=== PATIENT | male | born 1950 | race Caucasian/White ===

== ENCOUNTER 2017-04-03 20:09 | Emergency (ER) | payer MEDICARE, BC ==
[2017-04-03 20:29] VITALS: BP 111/68
[2017-04-03] MEDS ORDERED: HYDROmorphone 1 MG/ML Syringe IVPUSH ONE (20:46)
[2017-04-03] MEDS ORDERED: Metoclopramide 10 MG/2 ML SDV IVPUSH ONE (20:46)
[2017-04-03] MEDS ORDERED: LORazepam 2 MG/ML MDV IVPUSH ONE (20:46)
--- NOTE | 2017-04-03 20:51 | EDM.PDOC ---
ED HPI GENERAL MEDICAL PROBLEM - General Chief Complaint: Back Pain or Injury Stated Complaint: detox Time Seen by Provider: 04/03/17 20:46 Source of Information: Reports: Patient History Limitations: Reports: No Limitations - History of Present Illness INITIAL COMMENTS - FREE TEXT/NARRATIVE: 67-year-old male presents to the ED in a moderately intoxicated state but in severe pain with sciatic in the right but talk and lower back rating all way down the leg. Patient denies any recent falls or injuries. Patient was sober for the last 2 years but over the last 3 weeks his gone back to heavy drinking primarily alcohol in the form of beer. He said 6. Today. He is trying to quit again and is feeling like he is going through some withdrawal symptoms. At present he is quite agitated and in a significant amount of pain. Denies any nausea vomiting or diarrhea. Bowel function is normal in his been eating satisfactorily. Denies any hematemesis or blood in the stool. Has had seizures in the past on alcohol withdrawal. Has been to treatment in [facility] and [place] in the past for alcohol withdrawal treatment.patient has had lumbar spine surgery 2 with fusion. Pain is never been completely relieved but for some reason it has become acutely exacerbated over the last 3-4 days.feeling confused and somewhat disoriented at times. Did take a methocarbamol tablet a few hours ago. Onset: Today Onset Date: 04/03/17 Duration: Day(s):, Getting Worse (sciatica pain right leg and but talk rating down the leg to the lateral foot.) Location: Reports: Lower Extremity, Right (in the distribution of L5 nerve root. ) Quality: Reports: Ache, Burning, Throbbing Severity: Severe Improves with: Reports: None Worsens with: Reports: Other. Denies: Rest Context: Denies: Activity, Exercise, Sick Contact, Trauma, Other Associated Symptoms: Reports: Other (alcohol intoxication with nausea no vomiting. 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 100 mg PO DAILY 10/31/14 [History] Tiotropium [Spiriva HandiHaler] 1 puff INH DAILY 10/31/14 [History] traZODone 100 mg PO BEDTIME 10/31/14 [History] Acetaminophen [Tylenol] 650 mg PO Q6H PRN #0 tablet 11/02/14 [Rx] Temazepam [Restoril] 15 mg PO BEDTIME PRN #30 cap 11/02/14 [Rx] cloNIDine [Catapres] 0.1 mg PO Q4H PRN #60 tablet 11/02/14 [Rx] Diazepam [Valium] 5 mg PO Q12H #12 tablet 04/03/17 [Rx] oxyCODONE HCl/Acetaminophen [Percocet 5-325 mg Tablet] 1 - 2 each PO Q4H PRN # 28 tablet 04/03/17 [Rx] predniSONE [Deltasone] 20 mg PO ASDIRECTED #18 tablet 04/03/17 [Rx] Past Medical History Respiratory History: Reports: Pneumonia, Recurrent Gastrointestinal History: Reports: Other (See Below) Other Gastrointestinal History: stomach surgery Psychiatric History: Reports: Anxiety, Depression Endocrine/Metabolic History: Reports: Diabetes, Type II Other Endocrine/Metabolic History: marginal - Past Surgical History Neurological Surgical History: Reports: Laminectomy, Lumbar Spine (2 with fusion second time. I believe this is at L4-L5.L-spine surgery) Social & Family History - Tobacco Use Smoking Status *Q: Current Every Day Smoker Years of Tobacco use: 53 Packs/Tins Daily: 2 - Caffeine Use Caffeine Use: Reports: Coffee - Alcohol Use Days Per Week of Alcohol Use: 7 Number of Drinks Per Day: 6 Total Drinks Per Week: 42 - Recreational Drug Use Recreational Drug Use: No Drug Use in Last 12 Months: No Recreational Drug Type: Reports: Other (see below) Recreational Drug Use Frequency: Not Used In Over 6 Months - Living Situation & Occupation Living situation: Reports: Occupation: Employed (self-employed.) ED ROS GENERAL - Review of Systems Review Of Systems: See Below Constitutional: Reports: Malaise, Fatigue (from not sleeping), Weight Loss. Denies: Fever, Chills, Weakness HEENT: Reports: No Symptoms Respiratory: Reports: Shortness of Breath, Wheezing (chronically due to heavy cigarette smoking), Cough, Sputum (smoker's cough.). Denies: Pleuritic Chest Pain, Hemoptysis (brownish in color mostly) Cardiovascular: Reports: Dyspnea on Exertion (chronically). Denies: Chest Pain Endocrine: Reports: Fatigue GI/Abdominal: Reports: Nausea. Denies: Abdominal Pain, Constipation, Diarrhea, Vomiting : Reports: Frequency Musculoskeletal: Reports: Back Pain (ion of L5 nerve root.) Skin: Reports: No Symptoms Neurological: Reports: Difficulty Walking (sciatica right buttock and leg.) Psychiatric: Reports: Agitation, Anxiety, Confusion, Mood Lability. Denies: Cravings, Depression, Hallucinations, Homicidal Ideation, Suicidal Ideation Hematologic/Lymphatic: Reports: No Symptoms Immunologic: Reports: No Symptoms ED EXAM,LOWER BACK PAIN/INJURY - Physical Exam Exam: See Below Exam Limited By: Intoxication (mildly agitated and quite anxious.) General Appearance: Moderate Distress (no position is comfortable. Severe pain in his right lower back rating down the but talk and leg seem to be agitating him severely. He feels he is also going through alcohol withdrawal. He states he drank about 6 beers so far today. He states that's when he's been drinking 6 beers per day for the last 2-3 weeks although I suspect it might be much higher.) Eye Exam: Bilateral Eye: Normal Inspection (no jaundice.) Throat/Mouth: Normal Inspection, Normal Oropharynx, Other Head: Atraumatic, Normocephalic (tongue is mildly dry) Neck: Normal Inspection, Supple, Non-Tender, Full Range of Motion. No: Lymphadenopathy (L), Lymphadenopathy (R) Respiratory/Chest: Respiratory Distress (mild tachypnea but he is quite anxious. ), Decreased Breath Sounds, Rhonchi, Wheezing (sounds are mildly diminished lower 20% of lung storm bilaterallyexpiratory wheezes bilaterally) Cardiovascular: Normal Peripheral Pulses, Regular Rate, Rhythm, No Edema, No Gallop, No Murmur, No Rub GI/Abdominal: Normal Bowel Sounds, Soft, Non-Tender, No Organomegaly, No Distention Back Exam: Decreased Range of Motion, Muscle Spasm, Vertebral Tenderness (right lower back over the L3-4-5 areas.dictated over L4-L5 facet joints on the right side and L3. Pain throughout the superior aspect of the right SI joint as well.) Extremities: Normal Inspection, Normal Range of Motion, Non-Tender, No Pedal Edema, Other Neurological: Alert (no evidence of recent trauma or falls to the knees.), CN II -XII Intact, Oriented x 3, Abnormal Gait, Straight Leg Raise (R) (positive at 35 .). No: Normal Gait DTR - Lower Extremities: 0: Ankle (R), Ankle (L), 1+: Knee (R), Knee (L) Psychiatric: Normal Affect, Normal Mood Skin Exam: Warm, Dry, Intact, Normal Color, No Rash EKG INTERPRETATION EKG Date: 04/03/17 Time: 20:55 Rhythm: NSR Rate (Beats/Min): 83 [place]: Normal P-Wave: Present QRS: Other (early R-wave transition.) ST-T: Normal QT: Normal Course - Vital Signs Last Recorded V/S: Last Vital Signs Temp 36.3 C 04/03/17 20:19 Pulse 95 04/03/17 20:19 Resp 20 04/03/17 20:19 BP 111/68 04/03/17 20:19 Pulse Ox 99 04/03/17 20:19 - Orders/Labs/Meds Orders: Active Orders 24 hr Category Date Time Status EKG Documentation Completion [RC] STAT Care 04/03/17 20:48 Active Chest 1V Frontal [CR] Stat Exams 04/03/17 21:15 Taken Lumbar Spine wo Cont [CT] Stat Exams 04/03/17 20:49 Taken URINALYSIS W/MICROSCOPIC [UA W/MICROSCOPIC] [URIN] Stat Lab 04/03/17 20:52 Uncollected Dextrose 5%-0.9% NaCl [Dextrose 5%-Normal Saline] 1,000 Med 04/03/17 21:00 Active ml IV ASDIRECTED Medication Orders Dextrose/Sodium Chloride (Dextrose 5%-Normal Saline) 1,000 mls @ 150 mls/hr IV ASDIRECTED JACY Last Admin: 04/03/17 20:59 Dose: 150 mls/hr Labs: Laboratory Tests 04/03/17 04/03/17 04/03/17 Range/Units 20:50 20:50 20:50 WBC 10.24 H (4.23-9.07) K/mm3 RBC 4.20 L (4.63-6.08) M/mm3 Hgb 12.7 L (13.7-17.5) gm/L Hct 37.5 L (40.1-51.0) % MCV 89.3 (79.0-92.2) fl MCH 30.2 (25.7-32.2) pg MCHC 33.9 (32.2-35.5) g/dl RDW Std Deviation 49.5 H (35.1-43.9) fL Plt Count 367 H (163-337) K/mm3 MPV 9.3 L (9.4-12.3) fl Neutrophils % (Manual) 48 (40-60) % Band Neutrophils % 0 (0-10) % Lymphocytes % (Manual) 45 H (20-40) % Atypical Lymphs % 0 % Monocytes % (Manual) 7 (2-10) % Eosinophils % (Manual) 0 L (0.8-7.0) % Basophils % (Manual) 0 L (0.2-1.2) Platelet Estimate Adequate RBC Morph Comment Normal ESR (0-15) mm/hr PT 9.9 (8.0-13.0) SECONDS INR 0.91 APTT 29 (22-36) SECONDS Sodium 138 (136-145) mEq/L Potassium 3.5 (3.5-5.1) mEq/L Chloride 102 (98-107) mEq/L Carbon Dioxide 22 (21-32) mEq/L Anion Gap 17.5 H (5-15) BUN 8 (7-18) mg/dL Creatinine 1.0 (0.7-1.3) mg/dL Est Cr Clr Drug Dosing 73.65 mL/min Estimated GFR (MDRD) > 60 (>60) mL/min BUN/Creatinine Ratio 8.0 L (14-18) Glucose 83 (80-115) mg/dL Calcium 8.7 (8.5-10.1) mg/dL Magnesium 1.7 L (1.8-2.4) mg/dl Total Bilirubin 0.5 (0.2-1.0) mg/dL AST 49 H (15-37) U/L ALT 33 (16-63) U/L Alkaline Phosphatase 102 (46-116) U/L C-Reactive Protein < 0.2 (<1.0) mg/dL Total Protein 6.9 (6.4-8.2) g/dl Albumin 3.8 (3.4-5.0) g/dl Globulin 3.1 gm/dL Albumin/Globulin Ratio 1.2 (1-2) Lipase 118 (73-393) U/L Ethyl Alcohol 0.15 (0.00) gm% 04/03/17 Range/Units 20:50 WBC (4.23-9.07) K/mm3 RBC (4.63-6.08) M/mm3 Hgb (13.7-17.5) gm/L Hct (40.1-51.0) % MCV (79.0-92.2) fl MCH (25.7-32.2) pg MCHC (32.2-35.5) g/dl RDW Std Deviation (35.1-43.9) fL Plt Count (163-337) K/mm3 MPV (9.4-12.3) fl Neutrophils % (Manual) (40-60) % Band Neutrophils % (0-10) % Lymphocytes % (Manual) (20-40) % Atypical Lymphs % % Monocytes % (Manual) (2-10) % Eosinophils % (Manual) (0.8-7.0) % Basophils % (Manual) (0.2-1.2) Platelet Estimate RBC Morph Comment ESR 8 (0-15) mm/hr PT (8.0-13.0) SECONDS INR APTT (22-36) SECONDS Sodium (136-145) mEq/L Potassium (3.5-5.1) mEq/L Chloride (98-107) mEq/L Carbon Dioxide (21-32) mEq/L Anion Gap (5-15) BUN (7-18) mg/dL Creatinine (0.7-1.3) mg/dL Est Cr Clr Drug Dosing mL/min Estimated GFR (MDRD) (>60) mL/min BUN/Creatinine Ratio (14-18) Glucose (80-115) mg/dL Calcium (8.5-10.1) mg/dL Magnesium (1.8-2.4) mg/dl Total Bilirubin (0.2-1.0) mg/dL AST (15-37) U/L ALT (16-63) U/L Alkaline Phosphatase (46-116) U/L C-Reactive Protein (<1.0) mg/dL Total Protein (6.4-8.2) g/dl Albumin (3.4-5.0) g/dl Globulin gm/dL Albumin/Globulin Ratio (1-2) Lipase (73-393) U/L Ethyl Alcohol (0.00) gm% Meds: Medications Generic Name Dose Route Start Last Admin Trade Name Freq PRN Reason Stop Dose Admin Dextrose/Sodium Chloride 1,000 mls @ 150 mls/hr 04/03/17 21:00 04/03/17 20:59 Dextrose 5%-Normal Saline IV 150 mls/hr ASDIRECTED JACY Administration Discontinued Medications Generic Name Dose Route Start Last Admin Trade Name Freq PRN Reason Stop Dose Admin Hydromorphone HCl 1 mg 04/03/17 20:46 04/03/17 20:59 Dilaudid IVPUSH 04/03/17 20:47 1 mg ONETIME ONE Administration Lorazepam 0.5 mg 04/03/17 20:46 04/03/17 21:00 Ativan IVPUSH 04/03/17 20:47 0.5 mg ONETIME ONE Administration Metoclopramide HCl 10 mg 04/03/17 20:46 04/03/17 20:59 Reglan IVPUSH 04/03/17 20:47 10 mg ONETIME ONE Administration - Radiology Interpretation Free Text/Narrative:: 67-year-old male presents the ED with agitation a severe pain in his right but talk to lower leg. Has known sciatica with previous L-spine surgery 2. For whatever reason it's much worse the last few days. No known trauma or trigger factors. He states he does got some pain in his leg but it is much worse lately. He feels it may be partially related to alcohol withdrawal. She enjoyed 2 years of sobriety but has been drinking fairly heavily last 2-3 weeks. Denies any nausea vomiting or hematemesis. Reports stools are still formed up without blood. No history of pancreatitis to his knowledge. Denies any abdominal pain.He states he said about 6 beers so far today.major problem is the sciatic in his right leg making him quite agitated and anxious. He also does show some signs of alcohol withdrawal been tachycardiac and tachypneic. Plan IV D5 normal saline at 150 mils per hour. Given Dilaudid 1 mg IV with Reglan 10 mg IV and Ativan 0.5 mg IV for acute pain and anxiety relief. T labs to be collected including serum ethanol level magnesium and lipase. One view chest to be done due to his COPD and smoking pack and a half to [address] of his lumbar spine to be done. - Re-Assessments/Exams Free Text/Narrative Re-Assessment/Exam: 04/03/17 21:46 chest x-ray reveals some infiltrate in the right lower lobe which is mostly scar tissue like. Normal cardiac silhouette. Mild hyperinflation of the lung storm CT of the lumbar spine reveals previous fusion at the L5-S1 level. There is a spondylitic listhesis of L4 on L5 of about 20%. The disc space between L4-L5 is completely gone almost in terms of [id number]. I suspect this is the cause of his pain. It appears there may be some tissue in the right foramina at L5 level which would correspond to his L5 nerve root inflammation at this time. Possible residual disc versus scar tissue. He will need an MRI to clarify this. Lab work is not completely back yet. The chemistry shows a sodium of 138 potassium 3.5 chloride 102 bicarbonate 22 and a gap is 17.5 glucose is 83 magnesium low normal at 1.7. AST 49 ALT 33 lipase is 118 blood alcohol is 0.15 g percent.he is feeling much improved after pain relief from the Dilaudid. Now able to lie flat and actually fell asleep for short period of time. We'll await his hematology. I'll be to discharge him home on Percocet 5/325 one or 2 every 4 hours as needed for pain relief with Valium 5 mg every 12 hours. For muscle spasm and to aid sleep. He'll also help him get through alcohol withdrawal as he is trying to quit drinking. 04/03/17 22:17 Labs are back. White count is 10.24. Hemoccult is 12.7 with hematocrit of 37.5. MCV is normal at 89.3. Platelets 3 and 67,000. Differential shows 40% neutrophils and 45% lymphocytes. Sedimentation rate is 8. PT is 9.9 INR 0.91. PTT is 29. Sodium 138. Potassium low-normal at 3.5 port 102 bicarbonate 22 and a gap 17.5. Creatinine is 1.0. Glucose 83. Magnesium slightly low at 1.7. AST 49 ELT normal at 33. Lipase is normal at 118. Blood alcohol is 0.15 g percent. Lipase is normal at 118. Blood alcohol is 0.15 g percent.we'll discharge the patient home on Percocet 5/325 milligram tablets as mentioned above. He will get them through the [employer] machine tonight. As well as the prednisone. Valium tabs are not available in the [employer] machine and will have to be obtained through the [facility]armacy. . Departure - Departure Time of Disposition: 21:49 Disposition: Home, Self-Care 01 Condition: Fair Clinical Impression: Low back pain with right-sided sciatica Qualifiers: Chronicity: acute Back pain laterality: right Qualified Code(s): M54.41 - Lumbago with sciatica, right side Alcohol intoxication with mild use disorder Qualifiers: Complication of substance-induced condition: uncomplicated Qualified Code(s): F10.129 - Alcohol abuse with intoxication, unspecified - Discharge Information Prescriptions: Diazepam [Valium] 5 mg PO Q12H #12 tablet oxyCODONE HCl/Acetaminophen [Percocet 5-325 mg Tablet] 1 - 2 each PO Q4H PRN # 28 tablet PRN Reason: pain relief. predniSONE [Deltasone] 20 mg PO ASDIRECTED #18 tablet Instructions: Sciatica, [id number], Alcohol Intoxication, [id number] Referrals: Jose Antonio Romano MD [Primary Care Provider] - Forms: ED Department Discharge Additional Instructions: evaluation in the emergency room tonight in regards to severe low back pain with right-sided sciatica and the L5 nerve or distribution. Chronic low back pain with previous surgery 2 to the lumbar spine. CT exam reveals previous fusion of L5-S1 with pedicle screws. CT identifies a mild spondylolisthesis at L4 on 5 which means the L4 vertebra slipping forward on the L5 vertebra by about 20%. Is causing increased pressure on the facet joints which is causing some degree of chronic low back pain. However clinically he has irritation of theof the nerve root at L5 on the right side. there is some spurring at the right sided L5-S1 foramina that is likely causing nerve root irritation.Disc space between L4 and L5 is nearly completely gone. I'm suspicious that this pain will continue. I would advise follow-up with her back surgeon to see if further surgery is indicated after MRI exam is been completed. Alcohol use is a problem and I have given you Valium 5 mg twice daily for the next 6 days to get to through alcohol withdrawal symptoms if you decide to quit drinking completely. It will also help with muscle spasm in your lower back. Second medication is Deltasone 20 mg twice daily for 6 days with breakfast and supper and then once daily in the morning for another 6 days to work with your Celebrex to reduce pain and inflammation in your lower back.note the [employer] machine will dispense more prednisone tablets then he will require at this time. You need a total of 18 tablets in the instrumented machine will dispense 30. Third medication his pain medication Percocet 11/04/24 one or 2 every 4-6 hours for pain relief as needed. There is a new back surgeon at [facility] [place] called Dr. Arteaga. Dr. Tavares her dig her last surgery has retired about a year and a half ago.follow-up with your personal physician in this regard.the [employer] machine does not contain Valium and therefore you have to cigar packer and picker the prescription the drugstore tomorrow. - My Orders Last 24 Hours: My Active Orders 04/03/17 20:48 EKG Documentation Completion [RC] STAT 04/03/17 20:49 Lumbar Spine wo Cont [CT] Stat 04/03/17 20:52 URINALYSIS W/MICROSCOPIC [UA W/MICROSCOPIC] [URIN] Stat 04/03/17 21:00 Dextrose 5%-0.9% NaCl [Dextrose 5%-Normal Saline] 1,000 ml IV ASDIRECTED 04/03/17 21:15 Chest 1V Frontal [CR] Stat - Assessment/Plan Last 24 Hours: My Active Orders 04/03/17 20:48 EKG Documentation Completion [RC] STAT 04/03/17 20:49 Lumbar Spine wo Cont [CT] Stat 04/03/17 20:52 URINALYSIS W/MICROSCOPIC [UA W/MICROSCOPIC] [URIN] Stat 04/03/17 21:00 Dextrose 5%-0.9% NaCl [Dextrose 5%-Normal Saline] 1,000 ml IV ASDIRECTED 04/03/17 21:15 Chest 1V Frontal [CR] Stat
[2017-04-03] MEDS ORDERED: Dextrose 5%-0.9% NaCl 1,000 ML IV SCH (21:00)
--- NOTE | 2017-04-04 18:06 | CT ---
CT lumbar spine Technique: Multiple axial sections were obtained from above the T11-T12 disc through the L5-S1 disc. Reconstructed sagittal and coronal images were reviewed. Comparison: No prior lumbar spine imaging. Findings: T11-T12: Very slight disc space narrowing is seen. Posterior disc is preserved. No central canal stenosis or neural foraminal stenosis is seen. T12-L1: Posterior disc is preserved. No central canal stenosis or neural foraminal stenosis is seen. L1-L2: Moderate to severe disc space narrowing is seen. Diffuse anterior disc bulge is seen with anterior osteophytes. Very slight circumferential disc bulge also noted with posterior disc maintaining a concave margin. Moderate degenerative apophyseal change is seen. No central canal stenosis or neural foraminal stenosis is seen. L2-L3: Mild circumferential disc bulge is seen. Mild degenerative apophyseal change is noted. No central canal stenosis or neural foraminal stenosis is seen. L3-L4: Mild circumferential disc bulge is seen. Posterior disc maintains a concave margin. Minimal degenerative apophyseal change is seen. No central canal stenosis or neural foraminal stenosis is seen. L4-L5: Severe disc space narrowing with vacuum disc phenomena is noted. Anterior spondylolisthesis is seen measuring about 6.5 mm. Diffuse thickening of the ligamentum flavum is seen with moderate central canal stenosis. Disc bulging appears to occur into the neural foramina causing neural foraminal stenosis although these findings are not optimally seen due to artifact from the metallic hardware. L5-S1: Intervertebral disc fixation device is seen. Posterior disc is preserved. No central canal stenosis is seen. Neural foramina are patent where the nerve roots exit. Minimal endplate osteophytes noted within L3 and L4. Surgical material is seen within the upper abdomen. Impression: 1. Previous surgery at L4-L5 and L5-S1. 2. Spondylolisthesis at L4-L5 with severe disc space narrowing and vacuum phenomena. Spondylolisthesis causes diffuse posterior disc bulging with what appears to be bilateral neural foraminal stenosis although this is not optimally seen due to artifact from the metallic hardware. Moderate central canal stenosis also noted at L4-L5. 3. Other degenerative change as noted above. Diagnostic code #3
--- NOTE | 2017-04-05 12:50 | CR ---
Chest: Portable view of the chest was obtained. Comparison: Previous chest x-ray of 10/31/14. Heart size and mediastinum are within normal limits for portable technique. Lungs are clear. Surgical clips seen at the gastroesophageal junction. Single orthopedic screw noted within the left shoulder. Minimal scoliosis is noted within the spine. Impression: 1. Incidental findings. Nothing acute is identified on portable chest x-ray. Diagnostic code #2
== END 2017-04-03 22:25 | disposition home or self-care (01) ==
LOC: JD.ED 20:09
DX: M54.41 Lumbago with sciatica, right side (principal); F10.129 Alcohol abuse with intoxication, unspecified; E11.9 Type 2 diabetes mellitus without complications; F17.210 Nicotine dependence, cigarettes, uncomplicated; Z79.899 Other long term (current) drug therapy
CPT/HCPCS: 36415; 71010; 72131; 80053; 83690; 83735; 85025; 85610; 85652; 85730; 86140; 93005; 96361; 96374; 96375; 99284; G0480; J1170; J2060; J2765; J7042

== ENCOUNTER 2018-03-23 14:13 | Emergency (ER) | payer MEDICARE, BC ==
[2018-03-23 14:24] VITALS: BP 128/71
[2018-03-23] MEDS ORDERED: Promethazine 25 MG/ML SDV IM ONE (14:36)
[2018-03-23] MEDS ORDERED: HYDROmorphone 1 MG/ML Syringe IM ONE (14:36)
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
== END 2018-03-23 14:55 | disposition home or self-care (01) ==
LOC: JD.ED 14:13
DX: M46.1 Sacroiliitis, not elsewhere classified (principal); I10 Essential (primary) hypertension; E11.9 Type 2 diabetes mellitus without complications; F17.210 Nicotine dependence, cigarettes, uncomplicated; Z79.899 Other long term (current) drug therapy
CPT/HCPCS: 96372; 99283; J1170; J2550; 99284

== ENCOUNTER 2024-05-11 09:20 | Emergency (ER) | payer MEDICARE, BC ==
[2024-05-11] MEDS: Lidocaine 1% 10 ML MDV INJECT ONE (10:42)
[2024-05-11 10:49] VITALS: BP 106/63; PULSE 73
== END 2024-05-11 10:45 | disposition home or self-care (01) ==
LOC: JD.ED 09:20
DX: S81.811A Laceration without foreign body, right lower leg, initial encounter (principal); I10 Essential (primary) hypertension; E11.9 Type 2 diabetes mellitus without complications; Z79.52 Long term (current) use of systemic steroids; Z79.899 Other long term (current) drug therapy; W22.8XXA Striking against or struck by other objects, initial encounter
CPT/HCPCS: 12002; 99282; 99283; J3490